=== PATIENT | male | born 1975 | race African-American/Black ===

== ENCOUNTER 2024-05-30 18:53 | Inpatient (IN) | payer OTHER ==
[~2024-05-30] VITALS: Ht 190.5 cm; Wt 117.8 kg
[2024-05-30] MEDS: ONDANSETRON HCL 4 MG/2 ML VIAL IV ONE (19:00)
[2024-05-30] MEDS: MORPHINE SULFATE 4 MG/ML SYR/VIAL IV ONE (19:00)
--- NOTE | 2024-05-30 19:00 | ED.PDOC ---
HPI Comments 48-year-old male with PMHx Metastatic Cancer brought in by EMS presents with a chief complaint of chest pain, diaphoresis, and generalized weakness. Patient states that his pain is localized to his left chest, nonradiating, describes as heaviness. Patient mentions that he was recently released from [facility] after 10 days of being inpatient due to his multiple comorbidities. Patient has no nausea, vomiting, diarrhea, abdominal pain, or SOB at this time. Patient notes that he failed radiation therapy for his cancer. Time Seen by MD: 18:55 Reviewed Notes: Medications, Allergies Allergies: Coded Allergies: NO KNOWN ALLERGIES (Unverified , 05/30/24) Information Source: Patient, Emergency Med Personnel Mode of Arrival: EMS Severity: Moderate Timing: Hours Duration: Since onset Prehospital treatment: 12 Lead EKG, Record Cutter Location: Chest (L) Quality: Heavy Onset: At Rest Cardiac Risk Factors: Other (METASTATIC CANCER) Past Medical History PAST MEDICAL HISTORY: Cancer Surgical History: Denies all surgeries Family History Family History: Reviewed,noncontributory to illness Social History Smoker: Non-Smoker Alcohol: Denies ETOH Use Drugs: Denies Drug Use Lives In: Home Constitutional: reports: diaphoresis, weakness; denies: chills, fatigue, fever, malaise, sweats, others EENTM: denies: blurred vision, double vision, ear bleeding, ear discharge, ear drainage, ear pain, ear ringing, eye pain, eye redness, hearing loss, mouth pain, mouth swelling, nasal discharge, nose bleeding, nose congestion, nose pain, photophobia, tearing, throat pain, throat swelling, voice changes, others Respiratory: denies: cough, hemoptysis, orthopnea, SOB at rest, shortness of breath, SOB with excertion, stridor, wheezing, others Cardiovascular: reports: chest pain; denies: dizzy spells, diaphoresis, Dyspnea on exertion, edema, irregular heart beat, left arm pain, lightheadedness, palpitations, PND, syncope, others Gastrointestinal: denies: abdomen distended, abdominal pain, blood streaked bowels, constipated, diarrhea, dysphagia, difficulty swallowing, hematemesis, melena, nausea, poor appetite, poor fluid intake, rectal bleeding, rectal pain, vomiting, others Genitourinary: denies: burning, dysuria, flank pain, frequency, hematuria, incontinence, penile discharge, penile sore, pain, testicle pain, testicle swelling, urgency, others Neurological: denies: dizziness, fainting, headache, left sided numbness, left sided weakness, numbness, paresthesia, pre-existing deficit, right sided numbness, right sided weakness, seizure, speech problems, tingling, tremors, weakness, others Musculoskeletal: denies: back pain, gout, joint pain, joint swelling, muscle pain, muscle stiffness, neck pain, others Integumetry: denies: bruises, change in color, change in hair/nails, dryness, laceration, lesions, lumps, rash, wounds, others Allergic/Immunocompromised: denies: Difficulty Healing, Frequent Infections, Hives, Itching, others Hematologic/Lymphatic: denies: anemia, blood clots, easy bleeding, easy bruising, swollen glands, others Endocrine: denies: excessive hunger, excessive sweating, excessive thirst, excessive urination, flushing, intolerance to cold, intolerance to heat, unexplained weight gain, unexplained weight loss, others Psychiatric: denies: anxiety, bipolar disorder, depression, hopeless, panic disorder, schizophrenia, sleepless, suicidal, others All Other Systems: Reviewed and Negative Physical Exam General Appearance: Other (APPEARS UNCOMFORTABLE) HEENT: Normal ENT Inspection, Pharynx Normal, TMs Normal Neck: Full Range of Motion, Non-Tender, Normal, Normal Inspection Respiratory: Chest Non-Tender, Lungs Clear, No Accessory Muscle Use, No Respiratory Distress, Normal Breath Sounds Cardiovascular: No Edema, No JVD, No Murmur, No Gallop, Normal Peripheral Pulses, Regular Rate/Rhythm Breast Exam: Deferred Gastrointestinal: No Organomegaly, Non Tender, No Pulsatile Mass, Normal Bowel Sounds, Soft Genitalia: Deferred Pelvic: Deferred Rectal: Deferred Extremities: No calf tenderness, Normal capillary refill, Normal inspection, Normal range of motion, Non-tender, No pedal edema Musculoskeletal : Apperance: Normal Neurologic: Alert, planned giving officer II-XII nml as Tested, No Motor Deficits, Normal Affect, Normal Mood, No Sensory Deficits Cerebellar Function: Normal Reflexes: Normal Skin: Dry, Normal Color, Warm Lymphatic: No Adenopathy Was a procedure done? Was a procedure done?: No CP Differential Dx Differential Diagnosis: MAT, [place] Differential Diagnosis: HTN Essential, HTN Accelerated Differential Diagnosis: Gastritis, Myocardial Infarction, Pericarditis X-Ray, Labs, Meds, VS Vital Signs Date Time Temp Pulse Resp B/P (MAP) Pulse Ox O2 Delivery O2 Flow Rate FiO2 05/30/24 21:57 95 05/30/24 20:00 106 05/30/24 19:51 103 05/30/24 19:36 98.9 104 16 89/36 (53) 98 98.9 05/30/24 19:36 104 16 98 Nasal Cannula* 4 36 05/30/24 19:10 98.0 108 16 81/32 (48) 93 98.0 05/30/24 18:53 108 Lab Test 05/30/24 22:04 05/30/24 19:56 05/30/24 19:09 Range/Units Troponin I High Sensitivity < 3 L < 3 L < 3 L </=54 ng/L White Blood Count 8.3 4.4-10.8 10^3/uL Red Blood Count 3.70 L 4.5-5.90 10^6/uL Hemoglobin 10.2 L 13.5-17.5 g/dL Hematocrit 30.7 L 41.0-53.0 % Mean Corpuscular Volume 83.0 80.0-100.0 fL Mean Corpuscular Hemoglobin 27.5 L 28.0-32.0 pg Mean Corpuscular Hemoglobin Concent 33.2 32.0-36.0 g/dL Red Cell Distribution Width 16.2 H 11.8-14.3 % Platelet Count 428 140-450 10^3/uL Mean Platelet Volume 8.5 6.9-10.8 fL Neutrophils (%) (Auto) 71.7 37.0-80.0 % Lymphocytes (%) (Auto) 21.0 10.0-50.0 % Monocytes (%) (Auto) 6.2 0.0-12.0 % Eosinophils (%) (Auto) 0.4 0.0-7.0 % Basophils (%) (Auto) 0.7 0.0-2.0 % Neutrophils # (Auto) 5.9 1.6-8.6 10 ^3/uL Lymphocytes # (Auto) 1.7 0.4-5.4 10 ^3/uL Monocytes # (Auto) 0.5 0-1.3 10 ^3/uL Eosinophils # (Auto) 0 0-0.8 10 ^3/uL Basophils # (Auto) 0.1 0-0.2 10 ^3/uL Nucleated Red Blood Cells 0.0 % Sodium Level 138 136-145 mmol/L Potassium Level 3.6 3.5-5.1 mmol/L Chloride Level 103 98-107 mmol/L Carbon Dioxide Level 24 20-31 mmol/L Anion Gap 11 5-15 Blood Urea Nitrogen 12 9-23 mg/dL Creatinine 1.19 0.700-1.30 mg/dL Glomerular Filtration Rate Calc 76 >90 mL/min BUN/Creatinine Ratio 10.1 10.0-20.0 Serum Glucose 162 H 74-106 mg/dL Hemoglobin A1c Pending Lactic Acid Level 1.2 0.4-2.0 mmol/L Calcium Level 9.3 8.7-10.4 mg/dL Phosphorus Level Pending Magnesium Level Pending Total Bilirubin 0.2 0.2-1.0 mg/dL Aspartate Amino Transferase (AST) 9 L 13-40 U/L Alanine Aminotransferase (ALT) < 9 7-40 U/L Alkaline Phosphatase 80 46-116 U/L B-Type Natriuretic Peptide 16.38 0-100 pg/mL Total Protein 7.3 5.7-8.2 g/dL Albumin 4.2 3.2-4.8 g/dL Triglycerides Level Pending Cholesterol Level Pending LDL Cholesterol Pending HDL Cholesterol Pending Lipase 38 12-53 U/L Vitamin B12 Level Pending Vitamin D 25-Hydroxy Pending Thyroid Stimulating Hormone (TSH) Pending Current Medications Medications (Trade) Dose Ordered Sig/Rick Route Start Time Stop Time Status Last Admin Sodium Chloride 1,000 ml @ 1,000 mls/hr Q1H ONCE IV 05/30/24 19:00 05/30/24 19:59 DC 05/30/24 19:15 Time of 1ST Reevaluation: 19:25 Reevaluation 1ST: Unchanged Patient Education/Counseling: Diagnosis, Treatment Family Education/Counseling: No Family Present Departure 1 Departure Time of Disposition: 22:46 (Salvo . Authorization to admit at [facility]. Discussed with [place] who let me know that patient has osteosarcoma of the thigh possible pancreatic cancer possible malignancy in the right chest. Patient with a acute chest pain shortness of breath hypoxic tachypneic and tachycardic. Patient does not appear septic. We will admit patient for further workup and expert consultation) Impression: Primary Impression: Acute chest pain Additional Impressions: Shortness of breath Pleural effusion, right Disposition: ADMITTED INPATIENT Admit to: Med Surg Condition: Serious Critical Care Note Critical Care Time?: Yes Critical care comment: Acute chest pain Authorized and Performed by: Micah Dominguez MD Total critical care time: Approximately 41 minutes Due to a high probability of clinically significant, life threatening deterioration, the patient required my highest level of preparedness to intervene emergently and I personally spent this critical care time directly and personally managing the patient. This critical care time included obtaining a history; examining the patient; pulse oximetry; ordering and review of studies; arranging urgent treatment with development of a management plan; evaluation of patient's response to treatment; frequent reassessment; and, discussions with other providers. This critical care time was performed to assess and manage the high probability of imminent, life-threatening deterioration that could result in multi-organ failure. It was exclusive of separately billable procedures and treating other patients and teaching time. Please see my other sections and the rest of the note for further information on patient assessment and treatment. Stability Stability form required: No Heart Score Heart Score: Heart Score Response (Comments) Value History Moderate Suspicious 1 EKG Repolarization Disturb 1 Age 45-64 1 Risk Factors 1 or 2 risk factors 1 Troponin 1-2 x's Normal limit 1 Total 5 I personally scribed for MICAH DOMINGUEZ MD ([email or web address]) on 05/30/24 at 19:00. Electronically submitted by Thony Ivy ([email or web address]). MICAH DOMINGUEZ MD May 30, 2024 19:00
[2024-05-30] MEDS: SODIUM CHLORIDE 0.9% 1,000 ML IV ONE (19:15)
[2024-05-30 19:20] LABS: Basophils # (auto) 0.1 10 ^3/uL (0-0.2); Basophils % (auto) 0.7 % (0.0-2.0); Eosinophils # (auto) 0 10 ^3/uL (0-0.8); Eosinophils % (auto) 0.4 % (0.0-7.0); Hematocrit 30.7 % (41.0-53.0); Hemoglobin 10.2 g/dL (13.5-17.5); Lymphocytes # (auto) 1.7 10 ^3/uL (0.4-5.4); Mean Corpuscular Hemoglobin 27.5 pg (28.0-32.0); Mean Corpuscular Hgb Conc. 33.2 g/dL (32.0-36.0); Monocytes # (auto) 0.5 10 ^3/uL (0-1.3); Monocytes % (auto) 6.2 % (0.0-12.0); Neutrophils # (auto) 5.9 10 ^3/uL (1.6-8.6); Neutrophils % (auto) 71.7 % (37.0-80.0); Platelet Count (auto) 428 10^3/uL (140-450); Red Cell Distribution Width 16.2 % (11.8-14.3); White Blood Cell 8.3 10^3/uL (4.4-10.8)
[2024-05-30 19:36] VITALS: PULSE 104; RESP 16; O2SAT 98
[2024-05-30 19:38] LABS: Albumin 4.2 g/dL (3.2-4.8); Alkaline Phosphatase 80 U/L (46-116); Anion Gap 11 (5-15); BUN/Creatinine Ratio 10.1 (10.0-20.0); Blood Urea Nitrogen 12 mg/dL (9-23); Calcium 9.3 mg/dL (8.7-10.4); Carbon Dioxide 24 mmol/L (20-31); Chloride 103 mmol/L (98-107); Lipase 38 U/L (12-53); Potassium 3.6 mmol/L (3.5-5.1); Sodium 138 mmol/L (136-145); Total Protein 7.3 g/dL (5.7-8.2)
[2024-05-30 19:39] LABS: Alanine Aminotransferase < 9 U/L (7-40); Aspartate Aminotransferase 9 U/L (13-40); Bilirubin, Total 0.2 mg/dL (0.2-1.0); Glucose 162 mg/dL (74-106)
--- NOTE | 2024-05-30 20:30 | DVH ---
CT HEAD WITHOUT CONTRAST INDICATION: syncope COMPARISON: None TECHNIQUE: CT of the head without intravenous contrast. RADIATION DOSE: CTDIvol: 49 mGy, DLP: 869 mGy*cm FINDINGS: There is no evidence of acute intracranial hemorrhage, extra-axial collection, mass effect, midline s hift, herniation or hydrocephalus. The ventricles, sulci and cisterns are age appropriate. The avalos -white differentiation is intact. The visualized paranasal sinuses and mastoid air cells are clear. The surrounding soft tissues and osseous structures are unremarkable. IMPRESSION: 1. No evidence of acute intracranial hemorrhage, mass effect or hydrocephalus.
--- NOTE | 2024-05-30 20:49 | DVH ---
CHEST RADIOGRAPH Indication: chest pain Technique: Single frontal view of the chest was obtained COMPARISON: None FINDINGS: Lines and Tubes: None Lungs: Near complete opacification of the right hemithorax which may reflect pneumonia, pleural fluid , or mass. No pneumothorax. Cardiomediastinal contours: Unremarkable Bones: Unremarkable IMPRESSION: 1. Near complete opacification of the right hemithorax which may reflect pneumonia, pleural fluid, or mass. Recommend noncontrast chest CT for further evaluation.
[2024-05-30] MEDS ORDERED: ONDANSETRON HCL 4 MG/2 ML VIAL IV PRN (23:30)
--- NOTE | 2024-05-30 23:44 | DVHHPRES ---
History of Present Illness Resident Creating Document: NICKI BENJAMIN History of Present Illness Thai Rodriguez is a 48 year old male patient who presents to ED with chief complaint dyspnea and stabbing localized left-sided chest pain parasternal to the 5th intercostal space which started today in functional class IV with no triggering factors, intensity 10/10 which worsens with cough and taking deep breaths, prompting his visit to the ED. 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 Denies unintentional weight loss, fever, chills, syncope, nausea, vomiting, diarrhea, constipation, recent travel, sick contacts and motor or sensory deficits. 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 Surgical history: Biopsy of thigh on 12/2023, hematoma drainage on 12/2023, correction of last femoral aneurysm, pleural biopsy and pleurodesis in April 2024 Family history: Breast cancer mother Social history: Lives in [place] with . Denies current tobacco, alcohol and other drug abuse. Ex tobacco abuse (approximately five pack-year history of smoking), quit four years ago. Allergies: Denies Home medication: Gabapentin, losartan, metoprolol, oxycodone and ibuprofen Patient seen and examined at bedside. Currently with requirement of oxygen through nasal cannula2 liters/minute. Pain is currently 5/10, resolved spontaneously. Completed angio chest CT which showed multiple metastasis and pneumonia. Started IV antibiotic. Past Medical History Per HPI Past Surgical History Per HPI Family History Per HPI Past Social History Per HPI Review of Systems Review of Systems Per HPI Allergies: Coded Allergies: NO KNOWN ALLERGIES (Unverified , 05/30/24) Medications Current Medications Medications Dose Ordered Sig/Rick Route Start Time Stop Time Status Last Admin Dose Admin Acetaminophen 650 mg Q6HP PRN PO 05/30/24 23:30 Ondansetron HCl 4 mg Q4HP PRN IV 05/30/24 23:30 Morphine Sulfate 2 mg Q4HPRN PRN IV 05/30/24 23:30 Enoxaparin Sodium 40 mg DAILY SC 05/31/24 10:00 Exam Vital Signs Vital Signs Date Time Temp Pulse Resp B/P (MAP) Pulse Ox O2 Delivery O2 Flow Rate FiO2 05/30/24 21:57 95 05/30/24 19:36 98.9 16 89/36 (53) 98 98.9 05/30/24 19:36 Nasal Cannula* 4 36 Exam Patient lying in bed, in no acute distress General: Lucid, afebrile, mucosae are moist Cardiovascular: Normal S1 and S2, tachycardic. No murmurs, gallops or rubs Respiratory: Regular ventilation mechanics, tachypneic. Absent lung sounds on right hemithorax, normal lung auscultation on left hemithorax. On nasal cannula at 2 liters/minute Abdomen: Soft, nontender, no organomegaly, normal bowel sounds MSK/skin: Mobilizes 4 limbs. Skin is dry and warm Neurological: Oriented in 3 spheres. No motor no sensitive deficits. Pupils are isocoric and reactive Labs/Xrays Labs Test 05/30/24 22:04 05/30/24 19:09 Range/Units Troponin I High Sensitivity < 3 L </=54 ng/L White Blood Count 8.3 4.4-10.8 10^3/uL Red Blood Count 3.70 L 4.5-5.90 10^6/uL Hemoglobin 10.2 L 13.5-17.5 g/dL Hematocrit 30.7 L 41.0-53.0 % Mean Corpuscular Volume 83.0 80.0-100.0 fL Mean Corpuscular Hemoglobin 27.5 L 28.0-32.0 pg Mean Corpuscular Hemoglobin Concent 33.2 32.0-36.0 g/dL Red Cell Distribution Width 16.2 H 11.8-14.3 % Platelet Count 428 140-450 10^3/uL Mean Platelet Volume 8.5 6.9-10.8 fL Neutrophils (%) (Auto) 71.7 37.0-80.0 % Lymphocytes (%) (Auto) 21.0 10.0-50.0 % Monocytes (%) (Auto) 6.2 0.0-12.0 % Eosinophils (%) (Auto) 0.4 0.0-7.0 % Basophils (%) (Auto) 0.7 0.0-2.0 % Neutrophils # (Auto) 5.9 1.6-8.6 10 ^3/uL Lymphocytes # (Auto) 1.7 0.4-5.4 10 ^3/uL Monocytes # (Auto) 0.5 0-1.3 10 ^3/uL Eosinophils # (Auto) 0 0-0.8 10 ^3/uL Basophils # (Auto) 0.1 0-0.2 10 ^3/uL Nucleated Red Blood Cells 0.0 % Sodium Level 138 136-145 mmol/L Potassium Level 3.6 3.5-5.1 mmol/L Chloride Level 103 98-107 mmol/L Carbon Dioxide Level 24 20-31 mmol/L Anion Gap 11 5-15 Blood Urea Nitrogen 12 9-23 mg/dL Creatinine 1.19 0.700-1.30 mg/dL Glomerular Filtration Rate Calc 76 >90 mL/min BUN/Creatinine Ratio 10.1 10.0-20.0 Serum Glucose 162 H 74-106 mg/dL Lactic Acid Level 1.2 0.4-2.0 mmol/L Calcium Level 9.3 8.7-10.4 mg/dL Total Bilirubin 0.2 0.2-1.0 mg/dL Aspartate Amino Transferase (AST) 9 L 13-40 U/L Alanine Aminotransferase (ALT) < 9 7-40 U/L Alkaline Phosphatase 80 46-116 U/L B-Type Natriuretic Peptide 16.38 0-100 pg/mL Total Protein 7.3 5.7-8.2 g/dL Albumin 4.2 3.2-4.8 g/dL Lipase 38 12-53 U/L Assessment/Plan Assessment/Plan Assessment: Acute respiratory failure secondary to pneumonia and metastasis Sepsis secondary to pneumonia Community-acquired pneumonia Gram-positive/Gram-negative Left thigh sarcoma status post radiation Questionable primary pancreatic cancer versus pancreatic metastasis - planning EUS as outpatient Hypertension Dyslipidemia Plan: Completed angio chest CT: Ruled out PE, numerous metastatic lesions are seen throughout the lung, largest mass measures 13 x 14 cm on right upper lobe causing mass effect and adjacent structures (leftward shift of mediastinum), right lower lobe consolidation which may reflect pneumonia, mediastinal lymphadenopathies. Last CT with contrast showed mass measured 11.1 x 10.1 cm. Patient currently on oxygen therapy, empiric IV antibiotic (cefepime and vancomycin), IV fluids and bronchodilators. Ordered pancultures (blood, urine and sputum) and swabs (MRSA, influenza and COVID), pending Per spouse, she believes pancreatic mass and lung nodules are secondary to metastases due to sarcoma. MRI of pancreas with and without contrast done on 05/19/2024 shows 3.2 x 2.9 cm presumed pancreatic head malignancy which could reflect cystic adenocarcinoma versus other primary cystic neoplasm, planning on completing EUS biopsy as outpatient with GI services. Right pleural biopsy completed unless admission shows mesothelial hyperplasia and inflammation (no evidence of metastatic sarcoma) Goals of care discussed with patient for over 18 minutes: Full code status Discussed plan with Dr. Frey, patient and nurses: Have ordered IV fluids, empiric IV antibiotic, bronchodilators and oxygen therapy. Treating pneumonia, once stabilized we will transferred to [place] to continue with care. Patient has poor prognosis Critical care time spent including discussion with nursing and family: 62 minutes Patient is unstable to transferred to [place]. Plan discussed with: Patient, Spouse, Other (Nurses) My Orders Orders - NICKI BENJAMIN RESIDENT Procedure Category Date Status Time Admit ADMIT 05/30/24 Transmitted 23:25 Code Status CODE 05/30/24 Transmitted 23:25 Vital Signs DAVID 05/30/24 In Process 23:25 Review Orders With DAVID 05/30/24 In Process Adm. 23:25 Npo (Nothing By DIET 05/31/24 Transmitted Mouth) Diet Breakfast Acetaminophen Tablet PHA 05/30/24 In Process (Tylenol Tablet) 23:30 Notify Of Changes DAVID 05/30/24 In Process From Base 23:25 Advance Directive DAVID 05/30/24 In Process 23:25 Patient Condition ORDERS 05/30/24 Transmitted 23:25 Allergies DAVID 05/30/24 In Process 23:25 Ondansetron Hcl PHA 05/30/24 In Process (Zofran) 23:30 Morphine Sulfate PHA 05/30/24 In Process Injection 23:30 Enoxaparin Sodium PHA 05/31/24 In Process (Lovenox) 10:00 Oxygen By Nasal RT 05/30/24 Transmitted Cannula 23:25 Stat Ekg For Chest DAVID 05/30/24 In Process Pain 23:25 Notify Of Changes DAVID 05/30/24 In Process From Base 23:25 Geological Specialist For DAVID 05/30/24 In Process 24 Hours 23:25 Emergency Dysrhythmia DAVID 05/30/24 In Process Protocol 23:25 Rhythm Strips Once DAVID 05/30/24 In Process Every Shift 23:25 Phosphorus LAB 05/30/24 In Process 23:25 Vitamin D, 25-Hydroxy LAB 05/30/24 In Process 23:25 Vitamin B12 LAB 05/30/24 In Process 23:25 Urinalysis LAB 05/30/24 Logged 23:25 Thyroid Stimulating LAB 05/30/24 In Process Hormone 23:25 Magnesium LAB 05/30/24 In Process 23:25 Lipid Panel LAB 05/30/24 In Process 23:25 Hemoglobin A1c LAB 05/30/24 In Process 23:25 Drug Screen LAB 05/30/24 Logged 23:25 Complete Blood Count LAB 05/31/24 Verified 04:00 Comprehensive LAB 05/31/24 Verified Metabolic Panel 04:[address] 05/30/24 Logged Contrast 23:25 NICKI BENJAMIN RESIDENT May 30, 2024 23:44
[2024-05-30 23:50] LABS: Magnesium 1.9 mg/dL (1.6-2.6)
[2024-05-30 23:52] LABS: Phosphorus 3.2 mg/dL (2.4-5.1)
[2024-05-31] VITALS (13 sets, daily range): BP systolic 112–148; BP diastolic 68–96; PULSE 88–103; RESP 14–22; TEMP 98.3–99.3; O2SAT 97–98
[2024-05-31] MEDS: IOHEXOL 350 MG/ML 100ML IJ ONE (00:07)
--- NOTE | 2024-05-31 00:46 | DVH ---
CTA Chest with intravenous contrast INDICATION: Septic shock COMPARISON: None TECHNIQUE: Multidetector spiral CTA of the chest was performed of the chest with intravenous contrast . PULMONARY ANGIOGRAPHY PROTOCOL was utilized using a bolus-tracking technique centered on the main p ulmonary artery. Axial, coronal and sagittal multiplanar and MIP reformats were performed. Radiation Dose : 1. Chest: CTDI volume is 5.92 mGy. Dose-length product is 977.95 mGy*cm The dose indicators for CT are the volume Computed Tomography (CT) Dose Index (CTDIvol) and the Dose Length Product (DLP), and are measured in units of mGy and mGy-cm, respectively. These indicators are not patient dose, but values generated from the CT scanner acquisition factors. The report includes radiation exposure data for exposures received during this examination. Findings: Pulmonary artery: No pulmonary embolism Lower neck: Normal thyroid. Lungs: Numerous metastatic lesions are seen throughout the lung, the largest mass measuring up to 13 x 14 cm in the right upper lobe causing mass effect on the adjacent structures including a leftward m idline shift of the mediastinum. Right lower lobe consolidation may reflect pneumonia or aspiration Heart/Vascular Structures: Normal heart size. No pericardial effusion. Lymph Nodes: Mediastinal lymphadenopathy, for example a right paratracheal lymph node measuring up to 2 cm. Pleura: No pleural effusion or significant pneumothorax. Musculoskeletal: No acute osseous abnormality. Soft tissues: Normal. Upper abdomen: Limited portions of the upper abdomen are unremarkable. IMPRESSION: 1. No pulmonary embolism. 2. Numerous metastatic lesions are seen throughout the lung, the largest mass measuring 13 x 14 cm in the right upper lobe causing mass effect on the adjacent structures including a leftward shift of t he mediastinum. 3. Right lower lobe consolidation may reflect pneumonia or aspiration 4. Mediastinal lymphadenopathy.
[2024-05-31] MEDS ORDERED: VANCOMYCIN PER PHARMACY 0 MG IV SCH (01:15)
[2024-05-31] MEDS: SODIUM CHLORIDE 0.9% 1,000 ML IV ONE (01:26)
[2024-05-31] MEDS: PANTOPRAZOLE 40 MG/10 ML VIAL INJ IV ONE (01:33)
[2024-05-31] MEDS: CEFEPIME 1GM/ 50ML 50 ML IV ONE (01:33)
[2024-05-31] MEDS: SODIUM CHLORIDE 0.9% 1,000 ML IV SCH (02:37)
[2024-05-31 03:01] LABS: Urine Bacteria None Seen /hpf (None Seen)
[2024-05-31 03:13] LABS: Urine Blood Negative /uL (Negative); Urine Clarity Clear (Clear); Urine Color Light-Yellow (Yellow); Urine Protein, UAD Negative (Negative); Urine Specific Gravity > 1.050 (1.001-1.035); Urine Squamous Epithelial Cell FEW /hpf (<5); Urine Urobilinogen Normal (Negative); Urine WBC 1 /HPF (0-3)
[2024-05-31 03:45] LABS: Cannabinoid Screen, Urine Pos (NEGATIVE); Opiate Scree,Urine Neg (NEGATIVE)
[2024-05-31 03:47] LABS: Amphetamine Screen, Urine Neg (NEGATIVE); Barbiturate Scree,Urine Neg (NEGATIVE); Benzodiazephine Screen, Urine Neg (NEGATIVE); Cocaine Screen, Urine Neg (NEGATIVE); Phencyclidine Screen, Urine Neg (NEGATIVE)
[2024-05-31 03:58] LABS: COVID19 ANTIGEN SOFIA FIA NEGATIVE (NEGATIVE); Rapid Influenza A Negative (Negative); Rapid Influenza B Negative (Negative)
[2024-05-31] MEDS: VANCOMYCIN 1GM/200ML PM 200 ML IV SCH (05:08)
[2024-05-31 06:12] LABS: Basophils # (auto) 0.1 10 ^3/uL (0-0.2); Basophils % (auto) 0.7 % (0.0-2.0); Eosinophils # (auto) 0 10 ^3/uL (0-0.8); Eosinophils % (auto) 0.4 % (0.0-7.0); Hematocrit 28.9 % (41.0-53.0); Hemoglobin 9.5 g/dL (13.5-17.5); Lymphocytes # (auto) 0.9 10 ^3/uL (0.4-5.4); Mean Corpuscular Hemoglobin 27.6 pg (28.0-32.0); Mean Corpuscular Hgb Conc. 32.8 g/dL (32.0-36.0); Mean Corpuscular Volume 84.1 fL (80.0-100.0); Monocytes # (auto) 0.6 10 ^3/uL (0-1.3); Neutrophils # (auto) 5.9 10 ^3/uL (1.6-8.6); Neutrophils % (auto) 78.9 % (37.0-80.0); Platelet Count (auto) 358 10^3/uL (140-450); Red Blood Cells 3.44 10^6/uL (4.5-5.90); Red Cell Distribution Width 16.2 % (11.8-14.3); White Blood Cell 7.5 10^3/uL (4.4-10.8)
[2024-05-31 06:18] LABS: Alanine Aminotransferase < 9 U/L (7-40); Alkaline Phosphatase 79 U/L (46-116); Anion Gap 9 (5-15); Aspartate Aminotransferase 9 U/L (13-40); BUN/Creatinine Ratio 13.3 (10.0-20.0); Bilirubin, Total 0.2 mg/dL (0.2-1.0); Blood Urea Nitrogen 12 mg/dL (9-23); Calcium 9.1 mg/dL (8.7-10.4); Carbon Dioxide 25 mmol/L (20-31); Chloride 106 mmol/L (98-107); Glucose 106 mg/dL (74-106); Potassium 3.8 mmol/L (3.5-5.1); Sodium 140 mmol/L (136-145); Total Protein 6.7 g/dL (5.7-8.2)
[2024-05-31 06:30] LABS: INR 1.09 (0.9-1.15); Partial Thromboplastin Time 30.5 SEC (24.5-34.5); Prothrombin Time 11.5 sec (9.3-11.8)
[2024-05-31] MEDS: CEFEPIME 1GM/ 50ML 50 ML IV SCH (09:50)
[2024-05-31] MEDS: PANTOPRAZOLE 40 MG/10 ML VIAL INJ IV SCH (09:50)
[2024-05-31] MEDS: ENOXAPARIN SOD 40 MG/0.4 ML SYRINGE SC SCH (09:51)
--- NOTE | 2024-05-31 11:45 | DVHDS2 ---
Discharge Summary Date of Admission May 30, 2024 at 23:25 Date of Discharge: May 31, 2024 Labs/Diagnostic Data: Laboratory Results Test 05/31/24 05:42 05/31/24 03:23 05/31/24 02:40 05/30/24 22:04 White Blood Count 7.5 10^3/uL (4.4-10.8) Red Blood Count 3.44 10^6/uL (4.5-5.90) Hemoglobin 9.5 g/dL (13.5-17.5) Hematocrit 28.9 % (41.0-53.0) Mean Corpuscular Volume 84.1 fL (80.0-100.0) Mean Corpuscular Hemoglobin 27.6 pg (28.0-32.0) Mean Corpuscular Hemoglobin Concent 32.8 g/dL (32.0-36.0) Red Cell Distribution Width 16.2 % (11.8-14.3) Platelet Count 358 10^3/uL (140-450) Mean Platelet Volume 8.7 fL (6.9-10.8) Neutrophils (%) (Auto) 78.9 % (37.0-80.0) Lymphocytes (%) (Auto) 12.0 % (10.0-50.0) Monocytes (%) (Auto) 8.0 % (0.0-12.0) Eosinophils (%) (Auto) 0.4 % (0.0-7.0) Basophils (%) (Auto) 0.7 % (0.0-2.0) Neutrophils # (Auto) 5.9 10 ^3/uL (1.6-8.6) Lymphocytes # (Auto) 0.9 10 ^3/uL (0.4-5.4) Monocytes # (Auto) 0.6 10 ^3/uL (0-1.3) Eosinophils # (Auto) 0 10 ^3/uL (0-0.8) Basophils # (Auto) 0.1 10 ^3/uL (0-0.2) Nucleated Red Blood Cells 0.0 % Prothrombin Time 11.5 sec (9.3-11.8) Prothrombin Time INR 1.09 (0.9-1.15) Activated Partial Thromboplast Time 30.5 SEC (24.5-34.5) Sodium Level 140 mmol/L (136-145) Potassium Level 3.8 mmol/L (3.5-5.1) Chloride Level 106 mmol/L (98-107) Carbon Dioxide Level 25 mmol/L (20-31) Anion Gap 9 (5-15) Blood Urea Nitrogen 12 mg/dL (9-23) Creatinine 0.90 mg/dL (0.700-1.30) Glomerular Filtration Rate Calc 106 mL/min (>90) BUN/Creatinine Ratio 13.3 (10.0-20.0) Serum Glucose 106 mg/dL (74-106) Calcium Level 9.1 mg/dL (8.7-10.4) Total Bilirubin 0.2 mg/dL (0.2-1.0) Aspartate Amino Transferase (AST) 9 U/L (13-40) Alanine Aminotransferase (ALT) < 9 U/L (7-40) Alkaline Phosphatase 79 U/L (46-116) Total Protein 6.7 g/dL (5.7-8.2) Albumin 4.0 g/dL (3.2-4.8) Carcinoembryonic Antigen < 0.50 ng/mL (<=5.0) Influenza Type A Antigen Negative (Negative) Influenza Type B Antigen Negative (Negative) SARS-CoV-2 Antigen (Rapid) Negative (NEGATIVE) Urine Color Light-yellow (Yellow) Urine Clarity Clear (Clear) Urine pH 6.0 (5.0-9.0) Urine Specific [place] > 1.050 (1.001-1.035) Urine Protein Negative (Negative) Urine Ketones Negative (Negative) Urine Blood Negative /uL (Negative) Urine Nitrite Negative (Negative) Urine Bilirubin Negative (Negative) Urine Urobilinogen Normal mg/dL (Negative) Urine Leukocyte Esterase Negative /uL (Negative) Urine RBC <1 /hpf (0 - 3) Urine Microscopic WBC 1 /HPF (0-3) Urine Squamous Epithelial Cells Few /hpf (<5) Urine Bacteria None seen /hpf (None Seen) Urine Glucose Normal mg/dL (Normal) Urine Opiates Screen Neg (NEGATIVE) Urine Fentanyl Screen Neg (NEGATIVE) Urine Barbiturates Screen Neg (NEGATIVE) Urine Phencyclidine Screen Neg (NEGATIVE) Urine Amphetamines Screen Neg (NEGATIVE) Urine Benzodiazepines Screen Neg (NEGATIVE) Urine Cocaine Screen Neg (NEGATIVE) Urine Cannabinoids Screen Pos (NEGATIVE) Troponin I High Sensitivity < 3 ng/L (</=54) Test 05/30/24 19:09 Hemoglobin A1c 5.1 % A1C (<5.7) Lactic Acid Level 1.2 mmol/L (0.4-2.0) Phosphorus Level 3.2 mg/dL (2.4-5.1) Magnesium Level 1.9 mg/dL (1.6-2.6) B-Type Natriuretic Peptide 16.38 pg/mL (0-100) Triglycerides Level 148 mg/dL (< 150) Cholesterol Level 166 mg/dL (< 200) LDL Cholesterol 121 mg/dL (< 100) HDL Cholesterol 27 mg/dL (40-59) Lipase 38 U/L (12-53) Vitamin B12 Level 284 pg/mL (211-911) Vitamin D 25-Hydroxy 25.2 ng/mL (30.0-100) Thyroid Stimulating Hormone (TSH) 0.66 uIU/mL (0.55-4.78) Other Laboratory Tests 05/31/24 05:42 Brief Hx & Hospital Course: SEE DICTATED NOTE Condition at Discharge: Guarded Final Diagnosis/Problems List SYNCOPY Discharge Disposition: Acute Care Facility Discharge Instruct/Medications Diet: Regular Activity: No Restrictions, As Tolerated Follow Up/Referral: FU WITH [facility] Medications: PER APR Discharge Statement: "Patient was advised to return to the ER or call 911 if any headaches, dizziness, shortness of breath, chest pain, abdominal pain, bleeding, fevers, or worsening of medical condition. Patient was counseled about treatment plan, medications, possible side effects, patientverbalized understanding. All questions were answered to the best of my ability. This discharge took greater then 30 minutes in planning, reviewing documentation, counseling the patient, and discussing with other team members." ASSESSMENT ASSESSMENT Assessment SYNCOPY Date of Service: May 31, 2024 Billing Provider: AISHA CHRIS MD Common Visit Codes: 61710-UPK/OBS DISCH DAY >30min Secondary Visit Codes: 61036-[id number] CARE PLAN 30 MINUTES AISHA CHRIS MD May 31, 2024 11:45
--- NOTE | 2024-05-31 12:01 | DVHDS ---
DATE OF DISCHARGE: 05/31/2024 HISTORY OF PRESENT ILLNESS: The patient is a 48-year-old gentleman who is admitted with complaints of severe chest pain and questionable syncope with cough. 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 The patient also has history of hypertension, hyperlipidemia, and left femoral aneurysm. HOSPITAL COURSE: The patient had a CT of the chest that showed no pulmonary embolism, but showed numerous metastatic lesions throughout the lung with the largest mass measuring 13 x 14 cm in the right upper lobe causing a mass effect as well as a right lower lobe consolidation. He also had mediastinal adenopathy. The patient had a CT of the head that showed no acute abnormality. Hemoglobin was 10.2 g/dL. The patient will now be transferred to [facility] for further management. FINAL DIAGNOSES: * Right-sided chest pain with right-sided pneumonia likely post obstructive, gram positive, gram negative. 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 * History of hypertension. * Hyperlipidemia. * Anemia. * Obesity. * Acute respiratory failure. Time spent in discharge planning, review of plan with the patient, including paperwork was 39 minutes. ADVANCED CARE PLANNING: The patient is a full code at this time. Time spent was 19 minutes. MD DANIELLE Walker/EMMA TID: [id number] RECEIPT: [id number]
--- NOTE | 2024-05-31 14:03 | ECG ---
[facility] Test Date: 2024-05-30 Test Time: 18:53:48 Pat Name: SOWMYA GIMENEZ Department: ED Room: 0293T Gender: M Emergency Medicine Specialist: gp : 1975 Requested By: MICAH PEREZ Order Number: [id number] Reading MD: Madhu Davis Measurements Intervals [place] Rate: 108 P: 35 FL: 160 QRS: 65 QRSD: 92 T: -5 QT: 343 QTc: 460 Interpretive Statements Sinus tachycardia Abnormal inferior Q waves Borderline ST elevation, lateral leads Electronically Signed On 06-02-2024 12:59:14 PDT by Madhu Davis Please click the below link to view image of tracing.
[2024-05-31] MEDS: MORPHINE SULFATE INJ 2 MG/ml SYRG IV PRN (15:32)
[2024-05-31] MEDS: VANCOMYCIN 1.25GM/250ML 250 ML IV SCH (17:11)
[2024-06-01 00:40] VITALS: BP 139/77; PULSE 103; RESP 14; TEMP 98.4; O2SAT 96
[2024-06-01] MEDS: ACETAMINOPHEN 325 MG TAB PO PRN (02:48)
[2024-06-01 05:00] VITALS: BP 139/77; PULSE 85; RESP 16; TEMP 97.7; O2SAT 97
[2024-06-01] MEDS: VANCOMYCIN 1.25GM/250ML 250 ML IV SCH (06:27)
[2024-06-01 08:00] VITALS: PULSE 100
[2024-06-01 08:02] VITALS: PULSE 95; RESP 18; O2SAT 95
[2024-06-01 08:23] LABS: Basophils # (auto) 0 10 ^3/uL (0-0.2); Basophils % (auto) 0.5 % (0.0-2.0); Eosinophils # (auto) 0.1 10 ^3/uL (0-0.8); Eosinophils % (auto) 1.9 % (0.0-7.0); Hematocrit 30.7 % (41.0-53.0); Hemoglobin 10.1 g/dL (13.5-17.5); Lymphocytes # (auto) 0.8 10 ^3/uL (0.4-5.4); Lymphocytes % (auto) 11.1 % (10.0-50.0); Mean Corpuscular Volume 84.9 fL (80.0-100.0); Monocytes # (auto) 0.5 10 ^3/uL (0-1.3); Monocytes % (auto) 7.1 % (0.0-12.0); Neutrophils # (auto) 5.9 10 ^3/uL (1.6-8.6); Neutrophils % (auto) 79.4 % (37.0-80.0); Nucleated Red Blood Cells % 0.1 %; Platelet Count (auto) 326 10^3/uL (140-450); Red Blood Cells 3.61 10^6/uL (4.5-5.90); Red Cell Distribution Width 15.9 % (11.8-14.3); White Blood Cell 7.5 10^3/uL (4.4-10.8)
[2024-06-01 08:33] VITALS: BP 146/87; PULSE 97; RESP 19; TEMP 97.7; O2SAT 95
--- NOTE | 2024-06-01 10:10 | DVHPN2 ---
Progress Note Date Seen: Jun 01, 2024 Medical Necessity Reason Pt with a Central, PICC or Fol: No Subjective Patient reports: No new complaints Review of Systems: HEENT:Normal, CVS:Normal, RESPIRATORY:Normal, GI:Normal, :Normal, MSK:Normal, NEURO:Normal Objective vital signs Vital Sign Date Time Temp Pulse Resp B/P (MAP) Pulse Ox O2 Delivery O2 Flow Rate FiO2 06/01/24 08:33 97.7 97 19 146/87 (106) 95 97.7 05/31/24 20:00 Nasal Cannula* 2 28 Total Intake and Output 05/31/24 05/31/24 06/01/24 15:00 23:00 07:00 Intake Total 250 ml 850 ml Balance 250 ml 850 ml medications Current Medications Medications Dose Ordered Sig/Rick Route Start Time Stop Time Status Last Admin Dose Admin Acetaminophen 650 mg Q6HP PRN PO 05/30/24 23:30 06/01/24 09:32 650 MG Ondansetron HCl 4 mg Q4HP PRN IV 05/30/24 23:30 Morphine Sulfate 2 mg Q4HPRN PRN IV 05/30/24 23:30 05/31/24 20:23 2 MG Enoxaparin Sodium 40 mg DAILY SC 05/31/24 10:00 06/01/24 09:32 40 MG Vancomycin HCl 0 ml @ 0 mls/hr UD IV 05/31/24 01:15 Cefepime HCl 50 ml @ 12.5 mls/hr Q8H IV 05/31/24 10:00 06/01/24 09:33 12.5 MLS/HR Sodium Chloride 1,000 ml @ 125 mls/hr Q8H IV 05/31/24 01:15 05/31/24 02:37 125 MLS/HR Pantoprazole Sodium 40 mg DAILY IV 05/31/24 10:00 06/01/24 09:32 40 MG Vancomycin HCl 250 ml @ 200 mls/hr Q8H IV 06/01/24 06:00 06/01/24 06:27 200 MLS/HR Examination: GENERAL:Normal, HEENT:Normal, NECK:Normal, LUNGS:Normal, LUNGS:Abnormal (on oxygen), CVS:Normal, ABDOMEN:Normal, MSK:Normal, SKIN:Normal, NEURO:Normal, :Normal laboratory and microbiology Laboratory Tests 06/01/24 07:17 05/31/24 05:42 Test 05/31/24 05:42 Range/Units Serum Glucose 106 74-106 mg/dL Microbiology Date/Time Source Procedure Growth Status 05/31/24 02:40 Blood Blood Culture - Preliminary NO GROWTH AFTER 24 HOURS OF INCUBATION. Resulted Problem List/Assessment/Plan Problem List/Assessment/Plan * Right-sided chest pain with right-sided pneumonia likely post obstructive, gram positive, gram negative. 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 * History of hypertension. * Hyperlipidemia. * Anemia. * Obesity. * Acute respiratory failure. advance care planning- full code- time spent 19 mins dc planning to [facility] Plan discussed with: Patient, Spouse My Orders My Orders Orders - AISHA CHRIS MD Procedure Category Date Status Time Discharge DISCHARGE 05/31/24 Transmitted 11:39 * [facility] CONS 05/31/24 Transmitted Consult Transfer Orders XFER 05/31/24 Transmitted 16:02 Imaging Transfer ORDERS 05/31/24 Transmitted Request 18:04 Date of Service: Jun 01, 2024 Billing Provider: AISHA CHRIS MD Common Visit Codes: [id number] INP/OBS CARE(HIGH) Secondary Visit Codes: [id number] CARE PLAN 30 MINUTES AISHA CHRIS MD Jun 01, 2024 10:10
--- NOTE | 2024-06-01 12:26 | ECG ---
[facility] Test Date: 2024-05-30 Test Time: 19:51:05 Pat Name: SOWMYA GIMENEZ Department: ED Room: 0293T B Gender: M [employer]: AAMIR : 1975 Requested By: MICAH PEREZ Order Number: [id number] Reading MD: Madhu Davis Measurements Intervals [place] Rate: 103 P: 31 AR: 161 QRS: 57 QRSD: 96 T: -3 QT: 354 QTc: 464 Interpretive Statements Sinus tachycardia Low voltage, precordial leads Borderline T abnormalities, inferior leads ST elevation, consider lateral injury Electronically Signed On 06-02-2024 12:59:18 PDT by Madhu Davis Please click the below link to view image of tracing.
[2024-06-01 12:46] VITALS: BP 156/80; PULSE 95; RESP 18; TEMP 98.3; O2SAT 95
--- NOTE | 2024-06-02 10:23 | ECG ---
[facility] Test Date: 2024-05-30 Test Time: 21:57:40 Pat Name: SOWMYA GIMENEZ Department: ED Room: 0293T B Gender: M Patient Attendant: AAMIR : 1975 Requested By: MICAH PEREZ Order Number: [id number] Reading MD: Madhu Davis Measurements Intervals [place] Rate: 95 P: 25 LA: 166 QRS: 30 QRSD: 94 T: -1 QT: 356 QTc: 448 Interpretive Statements Sinus rhythm Inferior infarct, old Lateral leads are also involved Electronically Signed On 06-02-2024 12:59:53 PDT by Madhu Davis Please click the below link to view image of tracing.
== END 2024-06-01 22:20 | disposition short-term general hospital (02) | DRG 871 ==
LOC: EDBD 18:53 → ER 18:59 → OVERFLOW 23:25 → TELE-WESTW 05-31 17:54
PROVIDERS: ADMIT Internal Medicine; ATTEND Internal Medicine
DX: A41.9 Sepsis, unspecified organism (principal); J15.69 Pneumonia due to other Gram-negative bacteria; J96.00 Acute respiratory failure, unspecified whether with hypoxia or hypercapnia; J15.9 Unspecified bacterial pneumonia; J90 Pleural effusion, not elsewhere classified; C34.91 Malignant neoplasm of unspecified part of right bronchus or lung; Z68.33 Body mass index [BMI] 33.0-33.9, adult; D64.9 Anemia, unspecified; I10 Essential (primary) hypertension; Z20.822 Contact with and (suspected) exposure to COVID-19; E66.9 Obesity, unspecified; E78.5 Hyperlipidemia, unspecified
CPT/HCPCS: 36415; 70450; 71045; 71275; 80053; 80061; 80202; 80307; 81001; 82306; 82378; 82565; 82607; 83036; 83605; 83690; 83735; 83880; 84100; 84443; 84484; 85025; 85610; 85730; 86301; 87040; 87086; 87426; 87804; 93005; 96360; 99291; G0378; J2470